=== PATIENT | male | born 1965 | race Caucasian/White ===

== ENCOUNTER 2021-10-15 13:51 | Emergency (ER) | payer OTHER, BC ==
[~2021-10-15] VITALS: Ht 182.9 cm; Wt 133.3 kg
[~2021-10-15 13:51] MED LIST: CLINDAMYCIN HC300 MG PO; PERCOCET 5-3251 EACH PO; VICODIN 5-3001 EACH PO
[2021-10-15] MEDS ORDERED: PREDNISONE20 MG PO (14:21)
[2021-10-15] MEDS ORDERED: HYDROCODON-ACE1 EA11 PO (14:23)
== END 2021-10-15 15:12 | disposition home or self-care (01) ==
LOC: ED 13:51
DX: M10.9 Gout, unspecified (principal); I10 Essential (primary) hypertension
CPT/HCPCS: 73630; 99283-25; A9270; J7512

== ENCOUNTER 2021-11-13 11:56 | Emergency (ER) | payer BC ==
[~2021-11-13] VITALS: Ht 182.9 cm; Wt 133.3 kg
[~2021-11-13 11:56] MED LIST changes: +HYDROCODON-ACE1 EA11 PO; +PREDNISONE20 MG PO
--- OUTSIDE RECORDS SUMMARY | 2021-11-13 11:58 | XMS ---
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 Natalia has no Care Guidelines for this patient. [facility] MO[facility] NOTE: Visits indicate total known visits. ED/C VISIT TRACKING (12 MO.) 11/13/2021 11:56 [facility] TYPE: Emergency COMPLAINT: - RT KNEE PAIN 10/15/2021 13:51 [facility] TYPE: Emergency COMPLAINT: - LT FOOT INJURY DIAGNOSES: - Essential (primary) hypertension - Gout, unspecified - Pain in left foot INPATIENT VISIT TRACKING (12 MO.) No inpatient visits to display in this time frame [email or web address]
[2021-11-13] MEDS ORDERED: PREDNISONE10 MG PO (14:23)
== END 2021-11-13 14:46 | disposition home or self-care (01) ==
LOC: ED 11:56
DX: M10.9 Gout, unspecified (principal); I10 Essential (primary) hypertension
CPT/HCPCS: 99283; J7512